=== PATIENT | male | born 1945 | race Caucasian/White ===

== ENCOUNTER 2017-11-05 12:01 | Emergency (ER) | END 2017-11-05 14:40 | disposition home or self-care (01) ==

== ENCOUNTER 2018-08-08 20:41 | Inpatient (IN) | payer MEDICARE, OTHER ==
[~2018-08-08] VITALS: Ht 177.8 cm; Wt 101.1 kg
[~2018-08-08 20:41] MED LIST: ALBU18HF INHALATION; ALFU10TA2 PO; ALLO300T2 PO; BENA20TA4 PO; BUDE6HFA INHALATION; HYDR-3671 PO; HYDR-4011 PO; LEVO50TA7 PO; METO-429 PO; ONDA4TAB8 PO
[2018-08-08] MEDS ORDERED: hydrALAzine 20 MG INJ IV ONE ×2 (21:00→22:30)
[2018-08-08] MEDS ORDERED: ONDANSETRON 4 MG INJ IV PRN (23:00)
[2018-08-08] MEDS ORDERED: ACETAMINOPHEN 325 MG TAB PO PRN (23:00)
[2018-08-08] MEDS ORDERED: HYDR100T25 PO (23:08)
[2018-08-08] MEDS ORDERED: HYDR-3980 PO (23:08)
[2018-08-08] MEDS ORDERED: MECL12.574 PO (23:08)
[2018-08-08] MEDS ORDERED: ALLO100T PO (23:08)
[2018-08-08] MEDS ORDERED: ESCI10TA48 PO (23:08)
[2018-08-08] MEDS ORDERED: FLUT1AER INHALATION (23:08)
--- NOTE | 2018-08-08 23:43 | ERD ---
ER Documentation Chief Complaint Chief Complaint pankaj ra from home for wheeler, uncontrolled blood pressure, took 2 meds in lasthr HPI Patient is a 72-year-old male with hypertension who presents with headache. He also has dizziness. He has a "strokelike headache". He had trouble talking with it but his speech is come back without any slurred speech. He is taking blood pressure medicines. He said that he has been trying to take his blood pressure medicine 3-4 times per day but is still having elevated blood pressure. He has been dealing with this for the past few days. He does have a primary doctor. ROS All systems reviewed and are negative except as per history of present illness. Medications Home Meds Active Scripts Hydralazine Hcl* (Hydralazine Hcl*) 25 Mg Tab, 25 MG PO Q8, #90 TAB 0 Refills Prov:PRO LANDAVERDE 05/11/16 Ondansetron Hcl* (Zofran*) 4 Mg Tablet, 4 MG PO Q8H PRN for NAUSEA AND/OR VOMITING, #30 TAB 0 Refills Prov:PRO LANDAVEDRE 05/11/16 Reported Medications Hydrocodone/Acetaminophen ([place] 10-325 Tablet) 1 Each Tablet, 1 EACH PO Q6H PRN for PAIN LEVEL 6-10, TAB 08/08/18 Escitalopram Oxalate* (Escitalopram Oxalate*) 10 Mg Tablet, 10 MG PO DAILY for 30 Days, #60 08/08/18 Meclizine Hcl* (Antivert*) 12.5 Mg Tab, 12.5 MG PO TID for 30 Days, #90 08/08/18 Allopurinol* (Allopurinol*) 100 Mg Tablet, 100 MG PO DAILY for 30 Days, #60 08/08/18 Hydralazine Hcl* (Hydralazine Hcl*) 100 Mg Tablet, 100 MG PO BID for 30 Days, #60 08/08/18 Fluticasone-Vilanterol (Breo Ellipta Inhaler) 100-25 Mcg/Actuation Aer.pow.ba, 1 PUFF INHALATION DAILY, #1 INHALER 08/08/18 Albuterol Sulfate* (Ventolin HFA*) 18 Gm Hfa.aer.ad, 2 PUFF INHALATION Q4H, #1 INHALER 05/11/16 Alfuzosin Hcl* (Alfuzosin Hcl*) 10 Mg Tab.er.24h, 10 MG PO DAILY, #30 TAB.SA 05/11/16 Benazepril Hcl* (Benazepril Hcl*) 20 Mg Tablet, 20 MG PO BID, #60 TAB 05/11/16 Metoprolol Tartrate* (Lopressor*) 50 Mg Tab, 50 MG PO BID, #60 TAB 05/11/16 Discontinued Reported Medications Budesonide-Formoterol Fumarate* (Symbicort*) 160-4.5 Hfa.aer.ad, 2 PUFF INHALATION BID, #1 EACH 05/11/16 Levothyroxine Sodium* (Levothyroxine Sodium*) 50 Mcg Tablet, 50 MCG PO BEFORE BREAKFAST, #30 TAB 05/11/16 Allopurinol* (Allopurinol*) 300 Mg Tablet, 300 MG PO DAILY, TAB 05/11/16 Discontinued Scripts Hydrocodone/Acetaminophen ([place] 5-325 Tablet) 1 Each Tablet, 2 TAB PO Q6H PRN for PAIN, #20 TAB 0 Refills Prov:PRO LANDAVERDE 05/11/16 Allergies Allergies: Coded Allergies: neomycin (Verified Allergy, Mild, 05/11/16) clarithromycin (Verified Allergy, Unknown, 05/11/16) ofloxacin (Verified Allergy, Unknown, 05/11/16) sulfamethoxazole (Verified Allergy, Unknown, 05/11/16) trimethoprim (Verified Allergy, Unknown, 05/11/16) Uncoded Allergies: SUPREX (Allergy, Unknown, 05/11/16) TERAZOL (Allergy, Unknown, 05/11/16) PMhx/Soc History of Surgery: No Anesthesia Reaction: No Hx Neurological Disorder: No Hx Respiratory Disorders: Yes (COPD) Hx Cardiac Disorders: Yes (HTN) Hx Psychiatric Problems: No Hx Miscellaneous Medical Probl: Yes (Prostate CA) Hx Alcohol Use: Yes Hx Substance Use: No Hx Tobacco Use: Yes FmHx Family History: No diabetes Physical Exam Vitals Vital Signs Date Temp Pulse Resp B/P (MAP) Pulse Ox O2 O2 Flow FiO2 Time Delivery Rate 08/08/18 59 20 174/75 97 Room Air 23:16 (108) 08/08/18 68 16 200/86 99 Room Air 22:27 (124) 08/08/18 61 16 180/84 96 Room Air 21:59 (116) 08/08/18 97.5 55 16 196/95 95 Room Air 21:19 (128) 08/08/18 98.6 56 19 210/105 100 20:47 (140) Physical Exam Const: No acute distress Head: Atraumatic Eyes: Normal Conjunctiva ENT: Normal External Ears, Nose and Mouth. Neck: Full range of motion. No meningismus. Resp: Clear to auscultation bilaterally Cardio: Regular rate and rhythm, no murmurs Abd: Soft, non tender, non distended. Normal bowel sounds Skin: No petechiae or rashes Back: No midline or flank tenderness Ext: No cyanosis, or edema Neur: Awake and alert, cranial nerves II through XII intact, strength is 5 out of 5 in all 4 extremities, no slurred speech Psych: Normal Mood and Affect Result Diagram: 08/08/18205608/08/182056 Results 24 hrs Laboratory Tests Test 08/08/18 20:57 White Blood Count 6.7 10^3/ul Red Blood Count 4.76 10^6/ul Hemoglobin 13.4 g/dl Hematocrit 41.5 % Mean Corpuscular Volume 87.2 fl Mean Corpuscular Hemoglobin 28.2 pg Mean Corpuscular Hemoglobin Concent 32.3 g/dl Red Cell Distribution Width 13.9 % Platelet Count 226 10^3/UL Mean Platelet Volume 10.8 fl Immature Granulocytes % 1.300 % Neutrophils % 71.7 % Lymphocytes % 16.8 % Monocytes % 8.1 % Eosinophils % 1.8 % Basophils % 0.3 % Nucleated Red Blood Cells % 0.0 /100WBC Immature Granulocytes # 0.090 10^3/ul Neutrophils # 4.8 10^3/ul Lymphocytes # 1.1 10^3/ul Monocytes # 0.5 10^3/ul Eosinophils # 0.1 10^3/ul Basophils # 0.0 10^3/ul Nucleated Red Blood Cells # 0.0 10^3/ul Prothrombin Time 13.0 Sec Prothrombin Time Ratio 1.0 INR International Normalized Ratio 0.97 Activated Partial Thromboplast Time 39.2 Sec Sodium Level 142 mmol/L Potassium Level 3.6 mmol/L Chloride Level 101 mmol/L Carbon Dioxide Level 30 mmol/L Anion Gap 11 Blood Urea Nitrogen 19 mg/dl Creatinine 1.10 mg/dl Est Glomerular Filtrat Rate mL/min mL/min Glucose Level 107 mg/dl Calcium Level 10.1 mg/dl Current Medications Medications Dose Sig/Leslie Start Time Status Last (Trade) Ordered Route PRN Stop Time Admin Dose Reason Admin Hydralazine 10 mg ONCE ONCE 08/08/18 DC 08/08/18 HCl IV 21:00 21:01 (Apresoline) 08/08/18 21:01 Hydralazine 10 mg ONCE ONCE 08/08/18 DC 08/08/18 HCl IV 22:30 22:33 (Apresoline) 08/08/18 22:31 Ondansetron 4 mg ER BRIDGE 08/08/18 HCl (Zofran PRN IV 23:00 Inj) NAUSEA/VOMITI 08/09/18 22:59 NG 650 mg ER BRIDGE 08/08/18 Acetaminophen PRN PO 23:00 (Tylenol .MILD PAIN 08/09/18 22:59 Tab) 1-3 OR TEMP Procedures/MDM CT brain negative per radiology. EKG read by me: Rate/Rhythm: Regular rate and rhythm at a normal rate Intervals: Normal Impression: No evidence of ischemia or arrhythmia Patient is a 72-year-old male with hypertension who presents with hypertensive urgency. The patient was given 2 doses of hydralazine. The patient has no stroke symptoms at this time and is outside the window for TPA anyway. The patient will be admitted to the care of Dr. Yu from the panel team. Critical Care: Time: 35 minutes excluding all billable procedures. Treatments/Evaluations: Close monitoring and treatment of unstable vital signs, cardiorespiratory, and neurologic status, while maintaining tight balance of fluid, respiratory, and cardiac interventions. Departure Diagnosis: Primary Impression: Hypertensive urgency Additional Impressions: Dizziness Headache Headache type: unspecified Headache chronicity pattern: acute headache Intractability: not intractable Qualified Codes: R51 - Headache Condition: Serious GEOVANNA KRAMER MD Aug 08, 2018 23:43
[2018-08-08 23:46] VITALS: PULSE 60
[2018-08-09] VITALS (10 sets, daily range): BP systolic 130–194; BP diastolic 69–95; PULSE 53–67; RESP 18–20; Ht 177.8 cm; Wt 101.1 kg
[2018-08-09] MEDS ORDERED: ACETAMINOPHEN 325 MG TAB PO PRN (01:00)
[2018-08-09] MEDS ORDERED: ONDANSETRON 4 MG TAB PO PRN (01:00)
[2018-08-09] MEDS: METOPROLOL 50 MG TAB PO SCH ×2 (01:00→08:29)
[2018-08-09] MEDS ORDERED: ALBUTEROL HFA 8 GM INHALER INH PRN (01:00)
[2018-08-09] MEDS ORDERED: NACL 0.9% 3 ML SYG IV SCH (01:00)
[2018-08-09] MEDS ORDERED: METOCLOPRAMIDE 10 MG INJ IV PRN (01:00)
[2018-08-09] MEDS ORDERED: HYDROCODONE/APAP (10/325) TAB PO PRN (01:00)
[2018-08-09] MEDS: BENAZEPRIL 20 MG TAB PO SCH ×2 (01:25→08:29)
[2018-08-09] MEDS ORDERED: ALFUZOSIN (SR) 10 MG TAB PO SCH ×2 (02:00→21:00)
[2018-08-09] MEDS ORDERED: AMLODIPINE 10 MG TAB PO ONE (04:30)
--- NOTE | 2018-08-09 05:54 | HP ---
Date/Time of Note Date/Time of Note DATE: 08/09/18 TIME: 05:50 Assessment/Plan VTE Prophylaxis Pharmacological prophylaxis: heparin Lines/Catheters IV Catheter Type (from Nrs): Saline Lock Assessment/Plan Assessment/Plan 1. Hypertensive urgency -Continue antihypertensives. Adjust as needed 2. Speech abnormality: Resolved patient reported that he was having a hard time speaking earlier. This is likely secondary to hypertensive crisis -Head CT negative for acute findings -Ordered carotid Doppler ultrasound. Consider MRI of the brain based on clinical course -See #1 3. COPD: No acute exacerbation 4. History of prostate cancer Result Diagram: 08/08/18205608/08/182056 Results 24hrs Laboratory Tests Test 08/08/18 20:57 White Blood Count 6.7 Red Blood Count 4.76 Hemoglobin 13.4 L Hematocrit 41.5 L Mean Corpuscular Volume 87.2 Mean Corpuscular Hemoglobin 28.2 L Mean Corpuscular Hemoglobin Concent 32.3 Red Cell Distribution Width 13.9 Platelet Count 226 Mean Platelet Volume 10.8 H Immature Granulocytes % 1.300 H Neutrophils % 71.7 Lymphocytes % 16.8 Monocytes % 8.1 Eosinophils % 1.8 Basophils % 0.3 Nucleated Red Blood Cells % 0.0 Immature Granulocytes # 0.090 H Neutrophils # 4.8 Lymphocytes # 1.1 Monocytes # 0.5 Eosinophils # 0.1 Basophils # 0.0 Nucleated Red Blood Cells # 0.0 Prothrombin Time 13.0 Prothrombin Time Ratio 1.0 INR International Normalized Ratio 0.97 Activated Partial Thromboplast Time 39.2 H Sodium Level 142 Potassium Level 3.6 Chloride Level 101 Carbon Dioxide Level 30 Anion Gap 11 Blood Urea Nitrogen 19 Creatinine 1.10 Est Glomerular Filtrat Rate mL/min Glucose Level 107 Calcium Level 10.1 HPI/ROS Admit Date/Time Admit Date/Time Aug 08, 2018 at 22:40 Hx of Present Illness This is a 72-year-old male with a history of hypertension, COPD, prostate cancer who presents the ER complaining of headache and dizziness. He also reported difficulty speaking. Denied facial droop, focal weakness, slurred speech, seizure-like activity. Denied chest pain, shortness of breath. When presented to ER, blood pressure was 210/105. Head CT negative for acute findings. Received several blood pressure medication, before appropriate improvement in the BP. Currently around 169/75 PMH/Family/Social Past Medical History Medications Current Medications Ondansetron HCl (Zofran Inj) 4 mg ER BRIDGE PRN IV NAUSEA/VOMITING; Start 08/08/18 at 23:00; Stop 08/09/18 at 22:59 Acetaminophen (Tylenol Tab) 650 mg ER BRIDGE PRN PO .MILD PAIN 1-3 OR TEMP; Start 08/08/18 at 23:00; Stop 08/09/18 at 22:59 IV Flush (NS 3 ml) 3 ml PER PROTOCOL IV ; Start 08/09/18 at 01:00 Metoclopramide HCl (Reglan) 10 mg Q6H PRN IV NAUSEA/VOMITING; Start 08/09/18 at 01:00 Acetaminophen (Tylenol Tab) 650 mg Q6H PRN PO .PAIN 1-3 OR TEMP; Start 08/09/18 at 01:00 Albuterol (Ventolin Hfa) 2 puff Q4H RESP THERAPY PRN INH sob, wheezing; Start 08/09/18 at 01:00 Allopurinol (Zyloprim) 100 mg DAILY PO ; Start 08/09/18 at 09:00 Benazepril HCl (Lotensin) 20 mg BID PO Last administered on 08/09/18at 01:25; Admin Dose 20 MG; Start 08/09/18 at 01:00 Escitalopram Oxalate (Lexapro) 10 mg DAILY PO ; Start 08/09/18 at 09:00 Fluticasone/ Vilanterol (Breo Ellipta 100-25 Mcg Inh) 1 inh DAILY INH ; Start 08/09/18 at 09:00 Hydralazine HCl (Apresoline) 100 mg BID PO Last administered on 08/09/18at 01:25; Admin Dose 100 MG; Start 08/09/18 at 01:00 Acetaminophen/ Hydrocodone Bitart (Jber (10/325)) 1 tab Q6H PRN PO PAIN LEVEL 6-10; Start 08/09/18 at 01:00 Meclizine HCl (Antivert) 12.5 mg TID PO ; Start 08/09/18 at 09:00 Metoprolol Tartrate (Lopressor) 50 mg BID PO ; Start 08/09/18 at 01:00 Ondansetron HCl (Zofran Tab) 4 mg Q8H PRN PO NAUSEA AND/OR VOMITING; Start 08/09/18 at 01:00 Alfuzosin HCl (Uroxatral) 10 mg DAILY@2100 PO Last administered on 08/09/18at 02:34; Admin Dose 10 MG; Start 08/09/18 at 02:00 Coded Allergies: neomycin (Verified Allergy, Mild, 05/11/16) clarithromycin (Verified Allergy, Unknown, 05/11/16) ofloxacin (Verified Allergy, Unknown, 05/11/16) sulfamethoxazole (Verified Allergy, Unknown, 05/11/16) trimethoprim (Verified Allergy, Unknown, 05/11/16) Uncoded Allergies: SUPREX (Allergy, Unknown, 05/11/16) TERAZOL (Allergy, Unknown, 05/11/16) Social History Smoking Status: Never smoker Exam/Review of Systems Vital Signs Vitals Vital Signs Date Temp Pulse Resp B/P (MAP) Pulse Ox O2 O2 Flow FiO2 Time Delivery Rate 08/09/18 169/75 05:20 (106) 08/09/18 60 04:00 08/09/18 97.5 20 97 Room Air 03:48 Exam Constitutional: other Head: normocephalic (No acute distress), atraumatic Eyes: EOMI Respiratory: clear to auscultation, normal air movement Cardiovascular: other (Bradycardic regular rhythm) Gastrointestinal: soft Extremities: normal pulses GWENODLYN FALCON MD Aug 09, 2018 05:54
[2018-08-09] MEDS: FLUTICASONE/VILANTEROL 100-25 INH SCH ×2 (08:28→08:58)
[2018-08-09] MEDS: MECLIZINE 12.5 MG TAB PO SCH ×2 (08:29→13:11)
[2018-08-09] MEDS: ESCITALOPRAM 10 MG TAB PO SCH ×2 (08:30→08:36)
[2018-08-09] MEDS ORDERED: HEPARIN 5,000 UNIT/1 ML VIAL SC SCH (09:00)
[2018-08-09] MEDS ORDERED: ALLOPURINOL 100 MG TAB PO SCH (09:00)
[2018-08-09] MEDS ORDERED: POTASSIUM CHLORIDE (SR) 20 MEQ TAB PO STA (12:43)
[2018-08-09] MEDS ORDERED: HYDR100T25 PO (12:56)
[2018-08-09] MEDS ORDERED: LOSA100T15 PO (12:56)
--- NOTE | 2018-08-09 13:03 | DS ---
Date/Time of Note Date/Time of Note DATE: 08/09/18 TIME: 12:57 Discharge Summary Admission/Discharge Info Admit Date/Time Aug 08, 2018 at 22:40 Discharge Date/Time Patient Condition: Stable Hospital Course This is a 72-year-old male with a history of hypertension, COPD, prostate cancer who presents the ER complaining of headache and dizziness. He also reported dif ficulty speaking. Denied facial droop, focal weakness, slurred speech, seizure- like activity. Denied chest pain, shortness of breath. When presented to ER, blood pressure was 210/105. Head CT negative for acute findings, unremarkable carotid US. He states he drank 3 cups of coffee yesterday that is much more than what he usually drinks. Patient was given 10 mg norvasc and continued on home antihypertensives except losartan. His blood pressure is 130/74. No headache, dizziness of slurring speech today. He states he cannot take norvasc due to side effects. I will resume him on his home medicaiotns including hydralazine 100 mg po tid, losartan 100 mg daily, and metoprolol. He was taking benazepril 20 mg daily, i instruct him to take it 40 mg per day if blood pressure is high at home. Home Meds Active Scripts Hydralazine Hcl* (Hydralazine Hcl*) 100 Mg Tablet, 100 MG PO TID for 30 Days, #60 TAB Prov:FRANSISCA PETIT MD 08/09/18 Losartan Potassium* (Losartan Potassium*) 100 Mg Tablet, 100 MG PO DAILY for 30 Days, TAB Prov:FRANSISCA PETIT MD 08/09/18 Reported Medications Hydrocodone/Acetaminophen ([place] 10-325 Tablet) 1 Each Tablet, 1 EACH PO Q6H PRN for PAIN LEVEL 6-10, TAB 08/08/18 Escitalopram Oxalate* (Escitalopram Oxalate*) 10 Mg Tablet, 10 MG PO DAILY for 30 Days, #60 08/08/18 Meclizine Hcl* (Antivert*) 12.5 Mg Tab, 12.5 MG PO TID for 30 Days, #90 08/08/18 Allopurinol* (Allopurinol*) 100 Mg Tablet, 100 MG PO DAILY for 30 Days, #60 08/08/18 Fluticasone-Vilanterol (Breo Ellipta Inhaler) 100-25 Mcg/Actuation Aer.pow.ba, 1 PUFF INHALATION DAILY, #1 INHALER 08/08/18 Albuterol Sulfate* (Ventolin HFA*) 18 Gm Hfa.aer.ad, 2 PUFF INHALATION Q4H, #1 INHALER 05/11/16 Alfuzosin Hcl* (Alfuzosin Hcl*) 10 Mg Tab.er.24h, 10 MG PO DAILY, #30 TAB.SA 05/11/16 Benazepril Hcl* (Benazepril Hcl*) 20 Mg Tablet, 20 MG PO BID, #60 TAB 05/11/16 Metoprolol Tartrate* (Lopressor*) 50 Mg Tab, 50 MG PO BID, #60 TAB 05/11/16 Discontinued Reported Medications Budesonide-Formoterol Fumarate* (Symbicort*) 160-4.5 Hfa.aer.ad, 2 PUFF INHALATION BID, #1 EACH 05/11/16 Levothyroxine Sodium* (Levothyroxine Sodium*) 50 Mcg Tablet, 50 MCG PO BEFORE BREAKFAST, #30 TAB 05/11/16 Allopurinol* (Allopurinol*) 300 Mg Tablet, 300 MG PO DAILY, TAB 05/11/16 Discontinued Scripts Hydralazine Hcl* (Hydralazine Hcl*) 25 Mg Tab, 25 MG PO Q8, #90 TAB 0 Refills Prov:PRO LANDAVERDE 05/11/16 Ondansetron Hcl* (Zofran*) 4 Mg Tablet, 4 MG PO Q8H PRN for NAUSEA AND/OR VOMITING, #30 TAB 0 Refills Prov:PRO LANDAVERDE 05/11/16 Hydrocodone/Acetaminophen ([place] 5-325 Tablet) 1 Each Tablet, 2 TAB PO Q6H PRN for PAIN, #20 TAB 0 Refills Prov:PRO LANDAVERDE 05/11/16 Follow-up Plan PCP in one week Primary Care Provider Not On Staff Doctor Pending Labs Laboratory Tests Test 08/08/18 20:57 08/09/18 05:44 White Blood Count 6.7 10^3/ul (4.8-10.8) 6.5 10^3/ul (4.8-10.8) Red Blood Count 4.76 10^6/ul (4.70-6.10) 4.59 10^6/ul (4.70-6.10) Hemoglobin 13.4 g/dl (14.0-18.0) 13.2 g/dl (14.0-18.0) Hematocrit 41.5 % (42.0-52.0) 40.1 % (42.0-52.0) Mean Corpuscular Volume 87.2 fl (82.0-101.0) 87.4 fl (82.0-101.0) Mean Corpuscular 28.2 pg (29.0-33.0) 28.8 pg (29.0-33.0) Hemoglobin Mean Corpuscular 32.3 g/dl (32.0-37.0) 32.9 g/dl (32.0-37.0) Hemoglobin Concent Red Cell Distribution 13.9 % (11.5-14.5) 13.7 % (11.5-14.5) Width Platelet Count 226 10^3/UL (140-415) 208 10^3/UL (140-415) Mean Platelet Volume 10.8 fl (7.4-10.4) 10.8 fl (7.4-10.4) Immature Granulocytes % 1.300 % (0.001-0.429) 1.100 % (0.001-0.429) Neutrophils % 71.7 % (39.0-77.0) 75.1 % (39.0-77.0) Lymphocytes % 16.8 % (15.0-51.0) 14.0 % (15.0-51.0) Monocytes % 8.1 % (0.0-11.0) 7.8 % (0.0-11.0) Eosinophils % 1.8 % (0.0-7.0) 1.5 % (0.0-7.0) Basophils % 0.3 % (0.0-2.0) 0.5 % (0.0-2.0) Nucleated Red Blood Cells 0.0 /100WBC (0.0-0.0) 0.0 /100WBC (0.0-0.0) % Immature Granulocytes # 0.090 10^3/ul (0.0-0.031) 0.070 10^3/ul (0.0-0.031) Neutrophils # 4.8 10^3/ul (1.6-7.5) 4.9 10^3/ul (1.6-7.5) Lymphocytes # 1.1 10^3/ul (0.8-2.9) 0.9 10^3/ul (0.8-2.9) Monocytes # 0.5 10^3/ul (0.3-0.9) 0.5 10^3/ul (0.3-0.9) Eosinophils # 0.1 10^3/ul (0.0-0.5) 0.1 10^3/ul (0.0-0.5) Basophils # 0.0 10^3/ul (0.0-0.1) 0.0 10^3/ul (0.0-0.1) Nucleated Red Blood Cells 0.0 10^3/ul (0.0-0.0) 0.0 10^3/ul (0.0-0.0) # Prothrombin Time 13.0 Sec (11.9-14.9) Prothrombin Time Ratio 1.0 INR International 0.97 Normalized Ratio Activated 39.2 Sec (23.0-35.0) Partial Thromboplast Time Sodium Level 142 mmol/L (135-144) 141 mmol/L (135-144) Potassium Level 3.6 mmol/L (3.5-5.1) 3.3 mmol/L (3.5-5.1) Chloride Level 101 mmol/L (97-110) 106 mmol/L (97-110) Carbon Dioxide Level 30 mmol/L (21-31) 25 mmol/L (21-31) Anion Gap 11 (5-13) 10 (5-13) Blood Urea Nitrogen 19 mg/dl (7-20) 16 mg/dl (7-20) Creatinine 1.10 mg/dl (0.61-1.24) 0.84 mg/dl (0.61-1.24) Est Glomerular Filtrat mL/min (>60) mL/min (>60) Rate mL/min Glucose Level 107 mg/dl (70-220) 106 mg/dl (70-220) Calcium Level 10.1 mg/dl (8.4-10.2) 9.8 mg/dl (8.4-10.2) FRANSISCA PETIT MD Aug 09, 2018 13:03
[2018-08-10] MEDS ORDERED: LOSARTAN 50 MG TAB PO SCH (09:00)
[2018-08-10] MEDS ORDERED: BENAZEPRIL 20 MG TAB PO SCH (09:00)
== END 2018-08-09 13:21 | disposition home or self-care (01) | DRG 305 ==
LOC: E/R 20:41 → MS3 22:40 → CANRESERV 22:56
PROVIDERS: ADMIT Internal Medicine; ATTEND Internal Medicine
DX: I16.0 Hypertensive urgency (principal); I10 Essential (primary) hypertension; J44.9 Chronic obstructive pulmonary disease, unspecified; Z85.46 Personal history of malignant neoplasm of prostate
CPT/HCPCS: 36415; 70450; 80048; 85025; 85610; 85730; 93880; 96374; 96376; J0360; J1644